=== PATIENT | male | born 1975 | race Caucasian/White ===

== ENCOUNTER → 2024-05-29 | Outpatient (CLI) | payer MEDICAID, SELFPAY ==
[2024-05-29 17:12] LABS: Absolute Lymphocyte Count 1.39 X10^3/uL (0.83-4.51); Absolute Neutrophil Count 4.3 X10^3/uL (2.0-7.7); Basophil# 0.03 X10^3/uL; Basophil% 0.5 % (0-1); Eosinophil# 0.11 X10^3/uL; Eosinophils% 1.8 % (0-5); Hematocrit 46.8 % (40-54); Hemoglobin 16.7 g/dL (13.0-16.5); Lymphocyte # 1.39 X10^3/ul (0.83-4.51); Lymphocyte % 22.2 % (19-41); Mean Corp Hgb Conc 35.7 g/dL (32-36); Mean Corpuscular Hgb 31.7 pg (27.0-32.0); Mean Platelet Vol. 11.1 fl (6.2-12.0); Monocyte# 0.46 X10^3/uL; Monocyte% 7.3 % (0-10); NRBC Flagged by Analyzer 0 % (0-5); Neutrophil # 4.25 X10^3/uL (2.7-7.7); Neutrophil % 67.9 % (47-70); Platelet Count 203 K/mm3 (150-450); RBC Distribution Width SD 38.9 fl (35.1-43.9); Red Blood Count 5.26 M/mm3 (4.6-6.2); White Blood Count 6.3 K/mm3 (4.4-11.0)
[2024-05-29 17:35] LABS: Hemoglobin A1c 5.3 % (3.8-5.6)
[2024-05-29 17:50] LABS: AST(SGOT) 17 U/L (15-37); Alanine Aminotransfer ALT/SGPT 24 U/L (16-61); Albumin, Serum 4.2 g/dL (3.2-5.0); Alkaline Phosphatase 49 U/L (45-117); Anion Gap 8 (5-15); BUN 11 mg/dL (7-18); BUN/Creat Ratio 11.1 RATIO (10-20); Calcium,Total 9.3 mg/dL (8.5-10.1); Chloride 106 mmol/L (98-107); Cholesterol 211 mg/dL (200); EST Glomerular Filtration Rate 85 mL/min (>60); Est Glom Filt Rate - Afr Amer 103 mL/min (>60); Glucose 100 mg/dL (74-106); High Density Lipoprotein 39 mg/dL; Potassium 3.9 mmol/L (3.5-5.1); Protein, Total 8.2 g/dL (6.4-8.2); Sodium Level 136 mmol/L (136-145); Thyroid Stim Hormone (TSH) 0.66 uIU/mL (0.358-3.74); Triglycerides 139 mg/dL; Very Low Density Lipoprotein 28 mg/dL (5-40)
[2024-05-29 18:06] LABS: HIV - WCH Non-Reactive (Nonreactive); Hepatitis B Surface Antibody Non-Reactive; Hepatitis B Surface Antigen Non-Reactive (Nonreactive); Hepatitis C Antibody Non-Reactive (Nonreactive); Syphilis Antibodies Non-reactive
[2024-05-31 05:07] LABS: Hepatitis B Core Ab Total Negative (Negative)
== END | disposition home or self-care (01) ==
LOC: VSLAB 13:33
PROVIDERS: PCP Nurse Practitioner Family; Visit Provider Nurse Practitioner Family
DX: Z11.3 Encounter for screening for infections with a predominantly sexual mode of transmission (principal); I10 Essential (primary) hypertension; Z13.220 Encounter for screening for lipoid disorders; Z13.1 Encounter for screening for diabetes mellitus
CPT/HCPCS: 36415; 80053; 80061; 83036; 84443; 85025; 86703; 86704; 86706; 86780; 86803; 87340

== ENCOUNTER 2025-05-20 15:06 | Emergency (ER) | payer MEDICAID, SELFPAY ==
[2025-05-20 15:07] VITALS: BP 189/107; PULSE 120; RESP 18; TEMP 37.1; O2SAT 100; BMI 24.0
--- NOTE | 2025-05-20 15:14 | EDS_ITS ---
HPI History of Present Illness Chief Complaint: Hypertension [facility] Medical History (Updated 05/20/25 @ 15:45 by Tarun Stahl) HTN (hypertension) Allergy/AdvReac Type Severity Reaction Status Date / Time No Known Allergies Allergy Verified 05/20/25 15:10 Social History Smoking Status: Former smoker EXAM Physical Exam Const Vital Signs: 05/20/25 15:07 05/20/25 15:45 05/20/25 17:07 Temperature 98.7 F Temperature Source Oral Pulse Rate 120 H 89 Respiratory Rate 18 12 Respiratory Pattern Normal Blood Pressure 189/107 H 152/89 H Blood Pressure Mean 134 110 Pulse Ox 100 100 Oxygen Delivery Method Room Air Room Air 05/20/25 17:23 Temperature 97.6 F L Temperature Source Pulse Rate 89 Respiratory Rate 12 Respiratory Pattern Blood Pressure 152/89 H Blood Pressure Mean 110 Pulse Ox 100 Oxygen Delivery Method MDM MDM MDM Narrative Medical decision making narrative: HISTORY OF PRESENT ILLNESS: Chief complaint: Elevated blood pressure, confusion 50-year-old male history of hypertension presents with elevated blood pressure and confusion. Patient states that his primary care physician's office. States has a history of high blood pressure. States he takes lisinopril. States I think I took it this morning. He states he noted that his PCPs office his blood pressure was elevated. He denies headache. Loss of vision, slurred speech, loss of movement sensation and coordination. No falls or trauma. No chest pain noted. No trouble with urination. No cough fever or chills. Notes he uses marijuana but is stopped over the last several days. Does not use any other drugs or alcohol. 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 No increased work of breathing, no conversational dyspnea, no accessory muscle use, no nasal flaring. No respiratory distress noted Heart: Regular rate and rhythm, No murmurs, No rubs and No gallops, 2+ distal pulses (radial, femoral, posterior tibial) in all extremities Abdomen: Soft, there is no tenderness, rigidity, rebound or guarding, no obvious peritoneal signs, no palpable pulsatile abdominal masses, no auscultated abdominal bruit : No CVAT Extremities: No edema Neuro: Alert and oriented x3, neuro exam at baseline, cranial nerves II through XII are intact. No pain with extraocular muscle movement. There is negative test of skew. 5 of 5 strength in upper and lower extremities in flexion exten paola. Intact sensation to light touch in upper and lower extremity dermatomes. No truncal or extremity ataxia. No dysdiadochokinesia. Normal gait. 2+ reflexes in upper and lower extremities. No meningeal signs. Negative Babinski. NIH of 0. Skin: No rash or lesions noted MEDICAL DECISION MAKING: Chief Complaint: please see HPI External records reviewed: Reviewed [facility] Factors affecting care: Hypertension Social determinants of health: n marijuana use, denies illicit drug use History obtained from others: none Consults: none [facility] Narrative: The patient was initially hypertensive, tachycardic afebrile, saturating 100% on room air. There were no focal neurologic deficits on my initial exam. The patient was alert and orient x 3. The patient did not appear toxic. He had no meningismus. He had no focal cardiopulmonary abnormalities. His abdomen was benign. I considered the following differential diagnosis: ICH, ACS, kidney damage, drug intoxication, alcohol withdrawal IV O2 monitor placed. I obtained a broad lab and imaging work to further determine if the patient was suffering from a life-threatening etiology. Initially to the patient blood pressure with his home lisinopril The patient's history and physical exam not consistent with meningitis ALL IMAGES (IF OBTAINED) HAVE BEEN PERSONALLY REVIEWED AND INTERPRETED BY MYSELF. EKG with sinus tachycardia rate 105, left axis deviation, normal intervals, no obvious STEMI (there is no chest pain did not obtain a troponin) CBC was not leukocytosis, no anemia or thrombocytopenia BMP without evidence of significant electrolyte abnormalities, no anion gap, no acute kidney injury. Urine tox cream positive for cannabinoids Serum alcohol negative CT scan of the head negative for ICH mass or bleed On reevaluation patient's blood pressure improved 152/89, tachycardia resolved. Patient remained afebrile. Repeat neurologic exam remained intact Patient will need outpatient blood pressure medication titration No clear line from during etiology can be ascertained here in the emergency department. The patient was alert and oriented x 3. I suspect his symptoms in part related to underlying hypertension as well as marijuana use/abuse. Admission was considered however the patient was hemodynamically stable, vital signs improved. Alert and orient x 3 he was ambulatory. He did not require inpatient mission at this time. The patient and/or family, caregivers express understanding. The patient and/or family, caregivers agrees with the plan. Shared decision making: I will have a discussion with the patient and or visitors regarding risk/benefits of further testing or admission. They will be made aware of of the risk/benefits inherent in this decision they will be given the opportunity to voice understanding. Total critical care time today provided was at least 0 minutes. This excludes separately billable procedures. Critical care time (if documented) is secondary to the patient having high probability of clinically significant/life threatening deterioration in the patient's condition which required my urgent intervention. Impression: 1. Elevated blood pressure 2. Transient alteration awareness 3. THC abuse Dispo: Discharge home This note was generated with [employer] dictation software. It may contain incorrect words, spelling, and punctuation that were not noted in review of the chart prior to signing. Lab Data Labs: Laboratory Results - last 24 hr 05/20/25 15:57 WBC 11.8 H RBC 4.66 Hgb 14.8 Hct 41.2 MCV 88.4 MCH 31.8 MCHC 35.9 RDW Std Deviation 38.0 RDW Coeff of Johnathan 11.9 Plt Count 263 MPV 10.6 Immature Gran % (Auto) 0.500 Neut % (Auto) 79.2 H Lymph % (Auto) 13.4 L Porter % (Auto) 5.6 Eos % (Auto) 0.9 Baso % (Auto) 0.4 Absolute Neuts (auto) 9.3 H Absolute Lymphs (auto) 1.58 Nucleated RBC % 0 Sodium 136 Potassium 3.4 Chloride 99 Carbon Dioxide 22.5 Anion Gap 15 BUN 20 H Creatinine 0.94 Estim Creat Clear Calc 85.78 Est GFR (MDRD) Non-Af 100 BUN/Creatinine Ratio 21.4 H Glucose 133 H Calcium 9.6 Urine Opiates Screen NEGATIVE U Buprenorphine Qual NEGATIVE Ur Oxycodone Screen NEGATIVE Urine Methadone Screen NEGATIVE Urine Fentanyl Screen NEGATIVE Ur Barbiturates Screen NEGATIVE Ur Phencyclidine Scrn NEGATIVE Ur Amphetamines Screen NEGATIVE U Benzodiazepines Scrn NEGATIVE Urine Cocaine Screen NEGATIVE U Cannabinoids Screen PRESUMPTIVE POSITIVE Ethyl Alcohol < 10.1 Radiography Diagnostic Testing: Clinical Impression(s) from Imaging Studies Brain CT 05/20/25 15:37 IMPRESSION: Unremarkable head CT. Reading Location: [facility] Discharge Plan Triage Chief Complaint: Hypertension Other Complaint: Confusion ED Provider: Serge Grullon Dx/Rx/DC Orders Instructions: ED Hypertension, Established Primary Care Provider: Corrie Ayala Referrals: Corrie Ayala, ACCOUNTING TECHNICIAN-C [Primary Care Provider] - Activity Restrictions/Additional Instructions: Thank you for trusting us with your care today! Your labs and images were reassuring. There were no signs of brain damage, damage to your and organs or heart damage on your evaluation. Please continue to take home lisinopril as prescribed. Please take Tylenol (2 pills, 650 mg), ibuprofen (2 pills, 400 mg) every 6 hours as needed for pain and fever control. Please return to the emergency department if your symptoms change or worsen. Please follow with your primary care physician for further outpatient evaluation and management. Print Language: Citizen Of [place] Disposition Disposition: Home, Self Care Discharge Date/Time: 05/20/25 17:32
--- NOTE | 2025-05-20 15:29 | EKG12_ITS ---
Test Reason : Blood Pressure : */* mmHG Vent. Rate : 105 BPM Atrial Rate : 105 BPM P-R Int : 124 ms QRS Dur : 80 ms QT Int : 336 ms P-R-T Axes : 75 -25 71 degrees QTcB Int : 444 ms Sinus tachycardia Otherwise normal ECG Confirmed by REGLA FU, TEOFILO ([id number]), nuclear operations specialist TOAN GAONA ([id number]) on 05/22/2025 9:04:20 AM Referred By: Confirmed By: TEOFILO ARAUZ MD
--- NOTE | 2025-05-20 15:29 | EKG12_ITS ---
Test Reason : Blood Pressure : */* mmHG Vent. Rate : 105 BPM Atrial Rate : 105 BPM P-R Int : 124 ms QRS Dur : 80 ms QT Int : 336 ms P-R-T Axes : 75 -25 71 degrees QTcB Int : 444 ms Sinus tachycardia Otherwise normal ECG Confirmed by REGLA FU, TEOFILO ([id number]), deputy editor in chief TOAN GAONA ([id number]) on 05/22/2025 9:04:20 AM Referred By: Confirmed By: TEOFILO ARAUZ MD
--- NOTE | 2025-05-20 15:37 | CT_ITS ---
PROCEDURE: BRAIN/HEAD WITHOUT CONTRAST 05/20/2025 REASON FOR EXAM: CONFUSION TECHNIQUE: BRAIN/HEAD WITHOUT CONTRAST Coronal and Sagittal reconstruction series were provided. One or more dose reduction techniques were used (e.g., Automated exposure control, adjustment of the mA and/or kV according to patient size, use of iterative reconstruction technique. RADIATION DOSE SUMMARY: CTDlvol: 44.99 mGy DLP: 829.85 mGycm COMPARISON: None. FINDINGS: No acute intracranial hemorrhage, extra-axial collection, mass effect or evidence of acute infarct. Ventricles and subarachnoid spaces are normal in size. Orbital contents are unremarkable. Intact skull base and calvarium. Clear paranasal sinuses and mastoid air cells. CT/Brain/Head without Contrast IMPRESSION: Unremarkable head CT. Reading Location: [id number]
--- NOTE | 2025-05-20 15:37 | CT_ITS ---
PROCEDURE: BRAIN/HEAD WITHOUT CONTRAST 05/20/2025 REASON FOR EXAM: CONFUSION TECHNIQUE: BRAIN/HEAD WITHOUT CONTRAST Coronal and Sagittal reconstruction series were provided. One or more dose reduction techniques were used (e.g., Automated exposure control, adjustment of the mA and/or kV according to patient size, use of iterative reconstruction technique. RADIATION DOSE SUMMARY: CTDlvol: 44.99 mGy DLP: 829.85 mGycm COMPARISON: None. FINDINGS: No acute intracranial hemorrhage, extra-axial collection, mass effect or evidence of acute infarct. Ventricles and subarachnoid spaces are normal in size. Orbital contents are unremarkable. Intact skull base and calvarium. Clear paranasal sinuses and mastoid air cells. CT/Brain/Head without Contrast IMPRESSION: Unremarkable head CT. Reading Location: [id number]
[2025-05-20 16:07] LABS: Hematocrit 41.2 % (40-54); Hemoglobin 14.8 g/dL (13.0-16.5); Immature Granulocytes Count 0.060 X10^3/uL (0.0-0.0); Mean Corp Hgb Conc 35.9 g/dL (32-36); Mean Corpuscular Volume 88.4 fL (80-94); Mean Platelet Vol. 10.6 fl (6.2-12.0); NRBC Flagged by Analyzer 0 % (0-5); Platelet Count 263 K/mm3 (150-450); RBC Distribution Width CV 11.9 % (11.6-14.6); RBC Distribution Width SD 38.0 fl (35.1-43.9); Red Blood Count 4.66 M/mm3 (4.6-6.2); White Blood Count 11.8 K/mm3 (4.4-11.0)
[2025-05-20 16:42] LABS: Alcohol, Blood (Medical)-Serum < 10.1 mg/dL (<=10.0); Anion Gap 15 (5-15); BUN 20 mg/dL (4-19); BUN/Creat Ratio 21.4 RATIO (10-20); Calcium,Total 9.6 mg/dL (7.6-11.0); Carbon Dioxide 22.5 mmol/L (21.0-32.0); Chloride 99 mmol/L (98-108); Estimated Creatinine Clearance 85.78 ml/min (50-250); Glucose 133 mg/dL (70-99); Potassium 3.4 mmol/L (3.3-5.1)
[2025-05-20 16:45] LABS: Barbiturate Urine NEGATIVE (< 200 ng/mL); Benzodiazepine Urine NEGATIVE (< 200 ng/mL); PCP Urine NEGATIVE (< 25 ng/mL); THC Urine PRESUMPTIVE POSITIVE (< 50 ng/mL)
[2025-05-20 17:07] VITALS: BP 152/89; PULSE 89; RESP 12; O2SAT 100
[2025-05-20 17:23] VITALS: BP 152/89; PULSE 89; RESP 12; TEMP 36.4; O2SAT 100
== END 2025-05-20 17:32 | disposition home or self-care (01) ==
PROVIDERS: Emergency Provider Emergency Medicine; PCP Nurse Practitioner Family; Visit Provider Emergency Medicine
DX: R41.0 Disorientation, unspecified (principal); F12.10 Cannabis abuse, uncomplicated; R29.700 NIHSS score 0; Z87.891 Personal history of nicotine dependence; Z79.899 Other long term (current) drug therapy; R40.4 Transient alteration of awareness; I10 Essential (primary) hypertension
CPT/HCPCS: 70450; 80048; 80307; 82077; 85025; 93005; 99285; A4216